=== PATIENT | male | born 1940 | race African-American/Black ===

== ENCOUNTER 2017-01-19 06:27 | Day surgery (SDC) | payer MEDICARE, OTHER ==
--- NOTE | 2017-01-18 16:24 | Pre-Procedure Note/Attestation ---
Pre-Procedure Note/Attestation Complete Prior to Procedure Planned Procedure: right Procedure Narrative: 1. CATARACT EXTRACTION WITH PHACO AND PC IOL IMPLANTATION, RIGHT EYE. 2.MALYUGIN RING INSERTION, RIGHT EYE FOR FLOPPY IRIS SYNDROME. 3.COMPLEX CATARACT , RIGHT EYE Indications for Procedure Pre-Operative Diagnosis: 1. CATARACT ,RIGHT EYE. 2. FLOPPY IRIS SYNDROME,RIGHT EYE 3. COMPLEX CATARACT , RIGHT EYE. Attestation I attest that I discussed the nature of the procedure; its benefits; risks and complications; and alternatives (and the risks and benefits of such alternatives ), prior to the procedure, with the patient (or the patient's legal policy services representative). I attest that, if there was a reasonable possibility of needing a blood transfusion, the patient (or the patient's legal policy services representative) was given the [facility] standardized written summary, pursuant to the [place] Blood Safety Act ([place] Health and Safety Code # 1645, as amended). I attest that I re-evaluated the patient just prior to the surgery and that there has been no change in the patient's H&P, except as documented below: LILIYA ANDRADE Jan 18, 2017 16:24
[~2017-01-19] VITALS: Ht 172.7 cm; Wt 90.7 kg
[2017-01-19] VITALS (8 sets, daily range): BP systolic 120–160; BP diastolic 62–94
[~2017-01-19 06:27] MED LIST: BSS 15ml BTL ONE; BSS 500ml btl ONE; Carbachol 0.01% Op Soln 1.5ml vial ONE; Dexamethasone 4mg/ml vial ONE; EPINEPHrine 1mg/1ml Amp ONE; Lidocaine 1% MPF 10mg/ml 5ml ONE; Povidone-Iodine 5% opth solution ONE; Sodium Hyaluronate 10 mg/ml 0.85ml ONE; Tetracaine 0.5% Opth 4ml Soln ONE; acetaZOLAMIDE 125mg tab ORAL ONE
[2017-01-19] MEDS ORDERED: DiphenhydrAMINE 50mg/ml Inj ONE (06:52)
[2017-01-19] MEDS ORDERED: Phenylephrine 10% Opth Soln 5ml ONE (07:16)
[2017-01-19] MEDS ORDERED: Vigamox Opth Soln 3ml ONE (07:16)
[2017-01-19] MEDS ORDERED: Ketorolac Tromethamine Opth 5ml Soln ONE (07:16)
[2017-01-19] MEDS ORDERED: Akten 3.5% 1ml Btl ONE (07:16)
[2017-01-19] MEDS ORDERED: Tropicamide 1% Opth 15ml Soln ONE (07:17)
--- NOTE | 2017-01-19 07:18 | Anethesia Preoperative Eval ---
Anesthesia Pre-op PMH/ROS General Date of Evaluation: Jan 19, 2017 Anesthesiologist: Sotero ASA Score: ASA 3 Mallampati Score Class I : Soft palate, uvula, fauces, pillars visible Class II: Soft palate, uvula, fauces visible Class III: Soft palate, base of uvula visible Class IV: Only hard plate visible Mallampati Classification: Class III Surgeon: Tiffanie Diagnosis: Right cataract Surgical Procedure: Right cataract extration with IOL Anesthesia History: none Family History: no anesthesia problems Allergies: Coded Allergies: PENICILLINS (Verified Allergy, Severe, 01/19/17) RINGING IN EARS, ANAPHYLACTIC Medications: see eMAR Past Medical History Cardiovascular: Reports: HTN, Denies: CAD, [place], valve dz, arrhythmia, other Pulmonary: Denies: asthma, COPD, ANDRE[place], other Gastrointestinal/Genitourinary: Reports: GERD, other - prostat ca, Denies: CRI, ESRD Neurologic/Psychiatric: Reports: depression/anxiety, other - seizures of unknown etiology, not on meds, Denies: dementia, CVA, TIA Endocrine: Denies: DM, hypothyroidism, steroids, other HEENT: Denies: cataract (L), cataract (R), glaucoma, [place] (L), [place] (R), other Hematology/Immune: Denies: anemia, DVT, bleeding disorder, other Musculoskeletal/Integumentary: Reports: OA, Denies: RA, DJD, DDD, edema, other PSxH Narrative: cervical and lumbar sx Anesthesia Pre-op Phys. Exam Physician Exam see chart Constitutional: NAD Cardiovascular: RRR Respiratory: CTA Airway Exam Mallampati Score: Class III MO: full ROM: full Teeth: missing Dentures: upper, lower Anesthesia Pre-op A/P Labs see chart Studies Pre-op Studies: EKG - sr Risk Assessment & Plan Assessment: ASA III Plan: MAC Status Change Before Surgery: No Pre-Antibiotics Drug: N/A NUVIA PANIAGUA M.D. Jan 19, 2017 07:17
[2017-01-19] MEDS: Tropicamide 1% Opth 15ml Soln RIGHT EYE SCH ×3 (07:26→07:56)
[2017-01-19] MEDS: Akten 3.5% 1ml Btl RIGHT EYE SCH ×3 (07:26→07:56)
[2017-01-19] MEDS: Phenylephrine 10% Opth Soln 5ml RIGHT EYE SCH ×3 (07:27→07:57)
[2017-01-19] MEDS: Ketorolac Tromethamine Opth 5ml Soln RIGHT EYE SCH ×3 (07:27→07:56)
[2017-01-19] MEDS: Vigamox Opth Soln 3ml RIGHT EYE SCH ×3 (07:27→07:57)
[2017-01-19 08:04] LABS: ANION GAP 6 mmol/L (5-15); CALCIUM 8.7 MG/DL (8.5-10.1); CARBON DIOXIDE 28 MMOL/L (21-32); CHLORIDE 107 MMOL/L (98-107); CREATININE 1.4 MG/DL (0.55-1.30); POTASSIUM 4.6 MMOL/L (3.5-5.1); SODIUM 140 MMOL/L (136-145)
[2017-01-19 08:09] LABS: BASOPHILS % (AUTO) 1.6 % (0.0-2.0); EOSINOPHILS % (AUTO) 1.7 % (0.0-3.0); LYMPHOCYTES % (AUTO) 21.3 % (20.0-45.0); MEAN CORPUSCULAR HEMOGLOBIN 30.8 PG (27.0-31.0); MEAN CORPUSCULAR HGB CONC 33.7 G/DL (32.0-36.0); MEAN CORPUSCULAR VOLUME 91 FL (80-99); MEAN PLATELET VOLUME 12.7 FL (6.5-10.1); MONOCYTES % (AUTO) 11.4 % (1.0-10.0); PLATELET COUNT 183 K/UL (150-450); RED BLOOD COUNT 4.56 M/UL (4.70-6.10); RED CELL DISTRIBUTION WIDTH 13.5 % (11.6-14.8); WHITE BLOOD COUNT 6.7 K/UL (4.8-10.8)
[2017-01-19] MEDS ORDERED: Lidocaine 1% MPF 10mg/ml 5ml ONE (09:00)
[2017-01-19] MEDS ORDERED: fentaNYL 100 mcg/2 mL IV ONE (09:00)
[2017-01-19] MEDS ORDERED: LR 1000ml ONE (09:00)
[2017-01-19] MEDS ORDERED: NS Irrig 1000ml ONE (09:00)
[2017-01-19] MEDS ORDERED: Sterile Water Irrig 1000ml IRRIG ONE (09:00)
[2017-01-19] MEDS ORDERED: LR 1000ml 1,000 ML IVLG SCH (09:23)
--- NOTE | 2017-01-19 09:24 | Immediate Post-Op Evaluation ---
Immediate Post-Op Evalulation Immediate Post-Op Evalulation Procedure: Right cataract extraction with IOL Date of Evaluation: Jan 19, 2017 Time of Evaluation: 09:53 IV Fluids: 500 Blood Products: 0 Estimated Blood Loss: 0 Urinary Output: 0 Blood Pressure Systolic: 160 Blood Pressure Diastolic: 94 Pulse Rate: 64 Respiratory Rate: 16 O2 Sat by Pulse Oximetry: 98 Temperature (Fahrenheit): 97.9 Pain Score (1-10): 0 Nausea: No Vomiting: No Complications 0 Patient Status: awake, reacts, patent, none Hydration Status: adequate Drug: N/A NUVIA PANIAGUA M.D. Jan 19, 2017 09:24
--- NOTE | 2017-01-19 09:25 | 48 Hour Post Anesthesia Eval ---
Post Anesthesia Evaluation Procedure: Right cataract extraction with IOL Date of Evaluation: Jan 19, 2017 Airway: patent Nausea: No Vomiting: No Pain Intensity: 0 Hydration Status: adequate Cardiopulmonary Status: at baseline Mental Status/LOC: patient returned to baseline Post-Anesthesia Complications: 0 Follow-up care needed: ready to discharge NUVIA PANIAGUA M.D. Jan 19, 2017 09:25
[2017-01-19] MEDS ORDERED: DiphenhydrAMINE 50mg/ml Inj IVP PRN (09:30)
--- NOTE | 2017-01-19 09:51 | Discharge Summary ---
Discharge Summary Discharge Summary Discharge Summary DATE OF ADMISSION: 01/19/2017 DATE OF DISCHARGE: 01/19/2017 REASON FOR HOSPITALIZATION: 1- Cataract right eye 2- Floppy iris syndrome 3- Complex cataract. right eye SURGERY PERFORMED: 1- Cataract extraction 2- Malyugin ring insertion 3- Complex cataract removed, right eye CONDITION IN THE HOSPITAL:The patient tolerated the surgery without complications. DISCHARGE CONDITION: The patient was stable at discharge. DISCHARGE MEDICATIONS: 1. Vigamox eye drops one drop q.i.d, OD 2. Prednisolone one drop q.i.d, OD 3. Acular q4h, OD POSTOPERATIVE ORDERS: The patient has to rest at home. No bending, No lifting, No watching Television tonight. POSTOPERATIVE FOLLOW UP: The patient will be followed in my office tomorrow morning at 7 o'clock. LILIYA ANDRADE Jan 19, 2017 09:51
--- NOTE | 2017-01-19 09:54 | Brief Operative Note ---
Immediate Post Operative Note Operative Note Chief Complaint: Nlurry vision, right eye difficulty driving and reading Pre-op Diagnosis: 1. CATARACT ,RIGHT EYE. 2. FLOPPY IRIS SYNDROME,RIGHT EYE 3. COMPLEX CATARACT , RIGHT EYE. Procedure: 1- Cataract extraction with phaco and PC IOL implantation, right eye. 2- Malyugin ring insertion, right eye 3- Complex cataract is removed, right eye Post-op Diagnosis: same as pre-op Surgeon: Liliya Moreno MD Building Contractor: None Additional Surgeons: None Anesthesiologist: Dr. Bey Anesthesia: MAC Specimen: none Complications: none Condition: stable Fluids: 500ml Estimated Blood Loss: none Drains: none - Monofocal PC IOL is implanted in the right eye without complication Implant(s) used?: Yes LILIYA MORENO Jan 19, 2017 09:54
[2017-01-19] MEDS ORDERED: Sodium Hyaluronate 10 mg/ml 0.85ml ONE (11:20)
--- NOTE | 2017-01-20 03:45 | Operative Note - Dictated ---
DATE OF OPERATION: 01/19/2017 FACILITY: [facility]. SURGEON: Alverto Canela M.D. FUR BUYER: None. ANESTHESIOLOGIST: Dr. Bey. ANESTHESIA: Monitored anesthesia care (MAC). PREOPERATIVE DIAGNOSES: 1. Cataract of the right eye. 2. Astigmatism, right eye. 3. Floppy iris syndrome, right eye. 4. Complex cataract, right eye. POSTOPERATIVE DIAGNOSES: 1. Cataract of the right eye. 2. Astigmatism, right eye. 3. Floppy iris syndrome, right eye. 4. Complex cataract, right eye. SURGERY PERFORMED: 1. Cataract extraction with phacoemulsification and posterior chamber intraocular lens implantation in the right eye. 2. Insertion of Malyugin ring for treatment of floppy iris syndrome. 3. Complex cataract removal. INDICATION FOR SURGERY: The patient is a 76-year-old gentleman with history of hypertension, hypercholesterolemia, asthma, and benign prostatic hypertrophy. He has had low back surgeries last year and cancer removal of the prostate in 2010. He is taking medications including losartan, Flomax, tramadol, ranitidine, Lyrica, Diovan, and omeprazole. He is complaining of blurred vision in the right eye. On examination of the right eye, the cornea is clear, anterior chamber is shallow, but clean and quiet. Pupillary reflex is normal. There is no RAPD. There is 3+ nuclear sclerosis and 2+ cortical cataract. Funduscopy shows normal optic disc, normal macula, and periphery retina is flat. To improve his vision in the right eye, the cataract has to be removed and posterior chamber intraocular lens has to be implanted. INFORMED CONSENT: The nature of the surgery, risks, benefits, alternatives, and potential complications were all explained in detail to the patient. The potential complications including, but not limited to bleeding, infection, posterior capsular rupture, lens subluxation, flat anterior chamber, iris prolapse, uveitis, corneal edema, macular edema, endophthalmitis, retinal detachment, loss of vision, and even loss of the eye were all explained in detail to the patient. The patient voiced understanding and accepted all the complications. The alternatives including accommodating lenses, multifocal lenses, toric lens, and conventional cataract surgery with limbal relaxing incision for treatment of astigmatism were all explained in detail to the patient, who voiced understanding. The patient elected to have conventional cataract surgery with limbal relaxing incision (LRI) for treatment of astigmatism in the right eye. Then, he signed the consent form, which is in the chart. DESCRIPTION OF SURGERY AND FINDINGS: Following that, the patient was taken to the operating room in a stable condition. Lidocaine gel Akten 3.5% were applied to the conjunctiva of the right eye. IV sedation was given by the anesthesiologist, Dr. Bey. After adequate anesthesia and sedation had been achieved, the right eye was prepped and draped in the sterile fashion for intraocular surgery. Following that, a speculum was placed in the right eye. Before the patient was taken to the operation room, the cornea was marked at 180 and 90 meridian. In the operation room, using a corneal marker and marking pen, the steep meridian of the cornea was marked. Following that, using a emily knife with 600 blade, two parallel incisions were placed on the steep meridian of the cornea for treatment of astigmatism. Following that, using a Super Sharp knife, a clear corneal side port was created. A 1% lidocaine without preservative (MPF) was injected into the anterior chamber. Following that, viscoelastic agent, Healon was injected into the anterior chamber. Following that, using a 2.8 mm keratome, temporal clear corneal keratotomy was performed. Following that, a Malyugin ring was inserted into the anterior chamber. The coils of the Malyugin ring were engaged with the sphincter of the pupil. A emily shaped space was created for safe phacoemulsification. Following that, anterior capsulotomy was performed under the viscoelastic agent in the fashion of capsulorrhexis beautifully. Following that, the viscoelastic agent was removed from the anterior chamber. Following that, using balanced salt solution, hydrodissection and hydrodelineation were performed and the nucleus was freed. Following that, viscoelastic agent, Healon was injected into the anterior chamber to protect the endothelium of the cornea. Following that, using phacoemulsification machine in the fashion of horizontal chop, the nucleus was removed in toto. Following that, using irrigation aspiration unit, the cortical material was removed from the capsular bag and the capsular bag was polished. Following that, the capsular bag was filled with viscoelastic agent. Following that, a +15.5 diopter ZCB00 foldable PCIOL with serial number #[id number] was inserted into the capsular bag. Using a Sinskey hook, the lens was manipulated and put in the proper position. Following that, the viscoelastic agent was removed from the anterior and posterior part of the lens and the anterior chamber was filled with balanced salt solution. Following that, the wound was hydrated with balanced salt solution and the wound was checked for leakage. There was no leakage. Vigamox eye drops were applied to the conjunctiva of the right eye. Before the wound was hydrated, the Malyugin ring was removed from the anterior chamber. The patient tolerated the surgery without complications. At the end of the surgery, the eye was patched with a clear sterile fenestrated shield. Following that, the patient was transferred to the recovery room. In the recovery room, 125 mg Diamox was given by mouth stat. Postoperative orders and directions were given to the patient. The patient will be discharged home upon stabilization. The patient will be followed in my office tomorrow morning at 9 o'clock. Alverto Moreno M.D. DR: JEANETTE JOB#: [id number] CC:
== END 2017-01-19 11:35 | disposition home or self-care (01) ==
LOC: SUR 06:27
DX: H25.11 Age-related nuclear cataract, right eye (principal); H25.011 Cortical age-related cataract, right eye; H52.201 Unspecified astigmatism, right eye; H21.81 Floppy iris syndrome; E78.00 Pure hypercholesterolemia, unspecified; Z85.46 Personal history of malignant neoplasm of prostate; M48.061 Spinal stenosis, lumbar region without neurogenic claudication; I11.9 Hypertensive heart disease without heart failure; E66.9 Obesity, unspecified; Z68.30 Body mass index [BMI] 30.0-30.9, adult; K21.9 Gastro-esophageal reflux disease without esophagitis; F41.9 Anxiety disorder, unspecified; F32.9 Major depressive disorder, single episode, unspecified; Z88.0 Allergy status to penicillin
CPT/HCPCS: 36415; 66982; 80048; 85025; J0171; J1100; J1200; J3010; J7120; V2632; 94003; 94150

== ENCOUNTER 2017-03-02 06:12 | Day surgery (SDC) | payer MEDICARE, OTHER ==
--- NOTE | 2017-02-04 13:02 | Pre-Procedure Note/Attestation ---
Pre-Procedure Note/Attestation Complete Prior to Procedure Planned Procedure: left Procedure Narrative: 1. CATARACT EXTRACTION WITH PHACO AND PC IOL IMPLANTATION, LEFT EYE. 2.MALYUGIN RING INSERTION, LEFT EYE FOR FLOPPY IRIS SYNDROME. 3.COMPLEX CATARACT , LEFT EYE Indications for Procedure Pre-Operative Diagnosis: 1. CATARACT ,LEFT EYE. 2. FLOPPY IRIS SYNDROME,LEFT EYE 3. COMPLEX CATARACT , LEFT EYE. Attestation I attest that I discussed the nature of the procedure; its benefits; risks and complications; and alternatives (and the risks and benefits of such alternatives ), prior to the procedure, with the patient (or the patient's legal major account representative). I attest that, if there was a reasonable possibility of needing a blood transfusion, the patient (or the patient's legal major account representative) was given the [facility] standardized written summary, pursuant to the Justo [place] Blood Safety Act ([place] Health and Safety Code # 1645, as amended). I attest that I re-evaluated the patient just prior to the surgery and that there has been no change in the patient's H&P, except as documented below: LILIYA ANDRADE Feb 04, 2017 13:02
--- NOTE | 2017-02-09 07:04 | Anethesia Preoperative Eval ---
Anesthesia Pre-op PMH/ROS General Date of Evaluation: Feb 09, 2017 ASA Score: ASA 3 Mallampati Score Class I : Soft palate, uvula, fauces, pillars visible Class II: Soft palate, uvula, fauces visible Class III: Soft palate, base of uvula visible Class IV: Only hard plate visible Mallampati Classification: Class III Surgeon: Tiffanie Diagnosis: Left cataract Surgical Procedure: Left cataract extraction with IOL Anesthesia History: none Family History: no anesthesia problems Allergies: Coded Allergies: PENICILLINS (Verified Allergy, Severe, 01/19/17) RINGING IN EARS, ANAPHYLACTIC Medications: see eMAR Past Medical History Cardiovascular: Reports: HTN, other - HLD, Denies: CAD, [place], valve dz, arrhythmia Pulmonary: Denies: asthma, COPD, [place], other Gastrointestinal/Genitourinary: Reports: GERD, other - prostatee cancer, Denies: CRI, ESRD Neurologic/Psychiatric: Reports: depression/anxiety, other - seizure disorder, Denies: dementia, CVA, TIA Endocrine: Denies: DM, hypothyroidism, steroids, other HEENT: Denies: cataract (L), cataract (R), glaucoma, [place] (R), other Hematology/Immune: Denies: anemia, DVT, bleeding disorder, other Musculoskeletal/Integumentary: Reports: OA, other - LBP, Denies: RA, DJD, DDD, edema Other: obesity PSxH Narrative: lumbar sx, acdf, right cataract Anesthesia Pre-op Phys. Exam Airway Exam Mallampati Score: Class III Anesthesia Pre-op A/P Labs see chart Risk Assessment & Plan Assessment: ASA III Plan: MAC Status Change Before Surgery: No Pre-Antibiotics Drug: N/A NUVIA PANIAGUA M.D. Feb 09, 2017 07:04
[2017-03-02] VITALS (10 sets, daily range): BP systolic 121–145; BP diastolic 70–89
[~2017-03-02] VITALS: Ht 170.2 cm; Wt 90.7 kg
[~2017-03-02 06:12] MED LIST changes: +Akten 3.5% 1ml Btl LEFT EYE SCH; +Akten 3.5% 1ml Btl ONE; -BSS 15ml BTL ONE; -BSS 500ml btl ONE; -Carbachol 0.01% Op Soln 1.5ml vial ONE; +DOCUSATE SODIU100 MG ORAL; -Dexamethasone 4mg/ml vial ONE; -EPINEPHrine 1mg/1ml Amp ONE; +Ketorolac Tromethamine Opth 5ml Soln LEFT EYE SCH; +Ketorolac Tromethamine Opth 5ml Soln ONE; +LOSARTAN POTASS25 M1 PO; +LYRICA150 MG ORAL; -Lidocaine 1% MPF 10mg/ml 5ml ONE; +Phenylephrine 10% Opth Soln 5ml LEFT EYE SCH; +Phenylephrine 10% Opth Soln 5ml ONE; -Povidone-Iodine 5% opth solution ONE; -Sodium Hyaluronate 10 mg/ml 0.85ml ONE; +TAMSULOSIN HCL0.4 MG ORAL; +TIZANIDINE HCL2 MG PO; +TRAMADOL HCL50 MG ORAL; -Tetracaine 0.5% Opth 4ml Soln ONE; +Tropicamide 1% Opth 15ml Soln LEFT EYE SCH; +Tropicamide 1% Opth 15ml Soln ONE; +Vigamox Opth Soln 3ml LEFT EYE SCH; +Vigamox Opth Soln 3ml ONE; +ZANTAC150 MG ORAL
[2017-03-02] MEDS ORDERED: NS Irrig 1000ml ONE (06:13)
[2017-03-02] MEDS ORDERED: LR 1000ml ONE (06:13)
[2017-03-02] MEDS ORDERED: Sterile Water Irrig 1000ml IRRIG ONE (06:13)
[2017-03-02] MEDS: Vigamox Opth Soln 3ml LEFT EYE SCH ×3 (06:48→07:05)
[2017-03-02] MEDS: Akten 3.5% 1ml Btl LEFT EYE SCH ×3 (06:48→07:04)
[2017-03-02] MEDS: Phenylephrine 10% Opth Soln 5ml LEFT EYE SCH ×3 (06:48→07:05)
[2017-03-02] MEDS: Ketorolac Tromethamine Opth 5ml Soln LEFT EYE SCH ×3 (06:48→07:04)
[2017-03-02] MEDS: Tropicamide 1% Opth 15ml Soln LEFT EYE SCH ×3 (06:48→07:05)
[2017-03-02] MEDS ORDERED: Dexamethasone 4mg/ml vial ONE (06:59)
[2017-03-02] MEDS ORDERED: Lidocaine 1% MPF 10mg/ml 5ml ONE (06:59)
[2017-03-02] MEDS ORDERED: BSS 500ml btl ONE (06:59)
[2017-03-02] MEDS ORDERED: Tetracaine 0.5% Opth 4ml Soln ONE (06:59)
[2017-03-02] MEDS ORDERED: Sodium Hyaluronate 10 mg/ml 0.85ml ONE ×2 (07:00→09:05)
[2017-03-02] MEDS ORDERED: BSS 15ml BTL ONE ×2 (07:00→09:58)
[2017-03-02] MEDS ORDERED: Povidone-Iodine 5% opth solution ONE (07:00)
[2017-03-02] MEDS ORDERED: Carbachol 0.01% Op Soln 1.5ml vial ONE (07:00)
[2017-03-02] MEDS ORDERED: EPINEPHrine 1mg/1ml Amp ONE (07:00)
[2017-03-02] MEDS ORDERED: Lidocaine 2% MPF 5ml Vial INJ ONE (07:58)
[2017-03-02] MEDS ORDERED: Bupivacaine 0.75% 30ml vial INJ ONE (07:58)
[2017-03-02] MEDS ORDERED: LR 1000ml 1,000 ML IVLG SCH (08:06)
[2017-03-02] MEDS ORDERED: fentaNYL 100 mcg/2 mL IV PRN (08:15)
[2017-03-02] MEDS ORDERED: DiphenhydrAMINE 50mg/ml Inj IVP PRN (08:15)
[2017-03-02] MEDS ORDERED: LR 1000ml 1,000 ML IV SCH (08:15)
--- NOTE | 2017-03-02 08:18 | Anethesia Preoperative Eval ---
Anesthesia Pre-op PMH/ROS General Date of Evaluation: Mar 02, 2017 Time of Evaluation: 07:45 Anesthesiologist: Roz ASA Score: ASA 3 Mallampati Score Class I : Soft palate, uvula, fauces, pillars visible Class II: Soft palate, uvula, fauces visible Class III: Soft palate, base of uvula visible Class IV: Only hard plate visible Mallampati Classification: Class II Surgeon: Tiffanie Diagnosis: Cataract left eye Surgical Procedure: Extraction o cataract with IOL Allergies: Coded Allergies: PENICILLINS (Verified Allergy, Severe, 01/19/17) RINGING IN EARS, ANAPHYLACTIC Medications: see eMAR Past Medical History Cardiovascular: Reports: HTN, Denies: CAD, [place], valve dz, arrhythmia, other Pulmonary: Denies: asthma, COPD, [place], other Gastrointestinal/Genitourinary: Reports: GERD, other - Prostate CA Neurologic/Psychiatric: Reports: other - Patient describes a history of several episodes of 'passing out' over the past several months. PMD has evaluated him and has reportedly cleared the patient. Surgeon aware., Denies: dementia, CVA, depression/anxiety, TIA Endocrine: Denies: DM, hypothyroidism, steroids, other HEENT: Reports: cataract (L), cataract (R) Hematology/Immune: Denies: anemia, DVT, bleeding disorder, other Musculoskeletal/Integumentary: Denies: OA, RA, DJD, DDD, edema, other PMH Narrative: HTN, questionable episodes of 'passing out', GERD, chronic pain, prostate CA PSxH Narrative: Cervical and lumbar surgery, ORIF femur, T&A, prostate radiation, cataract Anesthesia Pre-op Phys. Exam Physician Exam Last Vital Signs Date Time Temp Pulse Resp B/P (MAP) Pulse Ox O2 Delivery O2 Flow Rate FiO2 03/02/17 06:52 98.1 61 20 121/74 97 Room Air Constitutional: NAD Neurologic: CN 2-12 intact Cardiovascular: RRR, no M/R/G Respiratory: CTA Gastrointestinal: S/NT/ND Airway Exam Mallampati Score: Class II MO: full ROM: full Dentures: upper Anesthesia Pre-op A/P Labs WNL except creatinine slightly elevated Risk Assessment & Plan Assessment: Hypertensive male with vague history of 'passing out' ( cleared by PMD) and surgeon. Plan: MAC, no IV meds, retro bulbar block by surgeon Status Change Before Surgery: No Pre-Antibiotics Drug: None CAYDEN ENGEL M.D. Mar 02, 2017 08:18
--- NOTE | 2017-03-02 08:19 | Immediate Post-Op Evaluation ---
Immediate Post-Op Evalulation Immediate Post-Op Evalulation Procedure: Extraction of cataract with IOL let eye Date of Evaluation: Mar 02, 2017 Time of Evaluation: 09:45 IV Fluids: 750 Blood Pressure Systolic: 148 Blood Pressure Diastolic: 80 Pulse Rate: 68 Respiratory Rate: 17 O2 Sat by Pulse Oximetry: 100 Temperature (Fahrenheit): 98.0 Pain Score (1-10): 0 Nausea: No Vomiting: No Complications No complication Patient Status: awake, patent, none Hydration Status: adequate Drug: None CAYDEN ENGEL M.D. Mar 02, 2017 08:19
[2017-03-02] MEDS ORDERED: Triamcinolone 40mg/ml PF Vial ONE (09:05)
--- NOTE | 2017-03-02 09:40 | Discharge Summary ---
Discharge Summary Discharge Summary Discharge Summary DATE OF ADMISSION: 03/02/2017 DATE OF DISCHARGE: 03/02/2017 REASON FOR HOSPITALIZATION: cataract left eye 2- floppy iris syndrome 3-n complex cataract. left eye SURGERY PERFORMED: 1- Cataract extraction, left eye 2- Malyugin ring insertion, left eye CONDITION IN THE HOSPITAL:The patient tolerated the surgery without complications. DISCHARGE CONDITION: The patient was stable at discharge. DISCHARGE MEDICATIONS: 1. Vigamox eye drops one drop q.i.d, OS 2. Prednisolone one drop q.i.d, OS 3. Acular one drop qid, left eye POSTOPERATIVE ORDERS: The patient has to rest at home. No bending, No lifting, No watching Television tonight. POSTOPERATIVE FOLLOW UP: The patient will be followed in my office tomorrow morning at 7 o'clock. LILIYA ANDRADE Mar 02, 2017 09:40
--- NOTE | 2017-03-02 09:42 | 48 Hour Post Anesthesia Eval ---
Post Anesthesia Evaluation Procedure: Extraction of cataract with IOL let eye Date of Evaluation: Mar 02, 2017 Time of Evaluation: 10:15 Blood Pressure Systolic: 150 0: 81 Pulse Rate: 68 Respiratory Rate: 15 O2 Sat by Pulse Oximetry: 100 Airway: patent Nausea: No Vomiting: No Pain Intensity: 0 Hydration Status: adequate Cardiopulmonary Status: Stable Mental Status/LOC: patient returned to baseline Follow-up Care/Observations: As per surgery Post-Anesthesia Complications: No anesthetic complication Follow-up care needed: N/A CAYDEN ENGEL M.D. Mar 02, 2017 09:42
--- NOTE | 2017-03-02 09:45 | Brief Operative Note ---
Immediate Post Operative Note Operative Note Chief Complaint: Blurry vision left eye difficulty driving and reading,left eye Pre-op Diagnosis: 1. CATARACT ,LEFT EYE. 2. FLOPPY IRIS SYNDROME,LEFT EYE 3. COMPLEX CATARACT , LEFT EYE. Procedure: 1- Cataract extraction with phaco and PC IOL implantation, left eye 2- Malyugin ring insertion, left eye. 3- Anterior vitrectomy left eye 4- LRI, left eye 5- Complex cataract, left eye Post-op Diagnosis: same as pre-op Surgeon: Liliya Moreno MD. Sweater Operator: None Additional Surgeons: None Anesthesiologist: Dr. Courtney Anesthesia: MAC Specimen: none Complications: yes Condition: stable Fluids: 500ml Estimated Blood Loss: none Implant(s) used?: Yes - Monofocal PC IOL implanted in the left eye . Anterior vitrectomy done, left eye LILIYA MORENO Mar 02, 2017 09:45
--- NOTE | 2017-03-03 07:00 | Operative Note - Dictated ---
DATE OF OPERATION: 03/02/2017 FACILITY: [facility]. SURGEON: Alverto Moreno M.D. [employer] SUPERVISOR: None. ANESTHESIOLOGIST: Justo Courtney M.D. ANESTHESIA: Monitored anesthesia care (MAC). PREOPERATIVE DIAGNOSES: 1. Cataract of the left eye. 2. Astigmatism, left eye. 3. Floppy iris syndrome, left eye. 4. Complex cataract, left eye. 5. Vitreous prolapse, left eye. POSTOPERATIVE DIAGNOSES: 1. Cataract of the left eye. 2. Astigmatism, left eye. 3. Floppy iris syndrome, left eye. 4. Complex cataract, left eye. 5. Vitreous prolapse, left eye. SURGERY PERFORMED: 1. Cataract extraction with phacoemulsification and posterior chamber with intraocular lens implantation in the left eye. 2. Insertion of Malyugin ring for treatment of floppy iris syndrome. 3. Complex cataract surgery performed. 4. Anterior vitrectomy. INDICATION FOR SURGERY: The patient is a 76-year-old gentleman with history of hypertension, hypercholesterolemia, asthma, and benign prostatic hypertrophy. He has had low back surgery last year and cancer removal of his prostate. He is taking medications including losartan, Flomax, tramadol, ranitidine, Lyrica, Diovan, and omeprazole. He is complaining of blurred vision in the left eye. He has had cataract surgery in the right eye three weeks ago and he is happy with the result. On examination of the right eye, the cornea is clear. Anterior chamber is clean and quiet. Pupillary reflexes normal. There is no RAPD. There is 4+ nuclear sclerosis and 2+ cortical cataract in the left eye. Funduscopy shows normal optic disc, normal macula, and periphery retina is flat. To improve his vision in the left eye, the cataract has to be removed and posterior chamber intraocular lens has to be implanted. INFORMED CONSENT: The nature of the surgery, risks, benefits, alternatives, and potential complications were all explained in detail to the patient. The potential complications including, but not limited to bleeding, infection, posterior capsular rupture, lens subluxation, flat anterior chamber, iris prolapse, uveitis, corneal edema macular edema, endophthalmitis, retinal detachment, loss of vision, and even loss of the eye were all explained in detail to the patient. The patient voiced understanding and accepted all the complications. The alternatives including accommodating lenses, multifocal lens, toric lens, and conventional cataract surgery with limbal relaxing incision for treatment of astigmatism were all explained. The patient voiced understanding. The patient elected to have conventional cataract surgery with limbal relaxing incision (LRI) for treatment of astigmatism in the left eye. Then, he signed the consent form, which is in the chart. DESCRIPTION OF SURGERY AND FINDINGS: Following that the patient was taken to the operation room in a stable condition. Lidocaine gel Akten 3.5% were applied to the conjunctiva of the left eye. IV sedation was given by the anesthesiologist, Dr. Bey. After adequate anesthesia and sedation had been achieved, the left eye was prepped and draped in a sterile fashion for intraocular surgery. Following that, a speculum was placed in the left eye. Before the patient was taken to the operation room, the cornea was marked at 180 and 90 meridian. In the operation room, using a corneal marker and marking pen, the steep meridian of the cornea was marked. Following that using a emily knife with 600 blade, two parallel incisions were placed on the steep meridian of the cornea for treatment of astigmatism. Following that using a Super Sharp knife, a clear corneal side port was created. A 1% lidocaine without preservative (MPF) was injected into the anterior chamber. Following that, viscoelastic agent, Healon, was injected into the anterior chamber. Following that, using a 2.8 mm keratome, temporal clear corneal keratotomy was performed. Following that, a Malyugin ring was inserted into the anterior chamber. The coils of the Malyugin ring were applied to engaged with intraoperative anterior capsulotomy engaged with pupil sphincter. A emily-shaped space was created for safe phacoemulsification. Following that, an anterior capsulotomy was performed in the fashion of capsulorrhexis beautifully. Following that, a viscoelastic agent was injected into the anterior chamber. Following that whole viscoelastic agent was removed from the anterior chamber. Hydrodissection and hydrodelineation was performed with balanced salt solution and the nucleus was freed. Following that viscoelastic agent, Healon was injected into the anterior chamber to protect the endothelium of the cornea. Following that, using the phacoemulsification machine in the fashion of horizontal chop, the nucleus was removed in toto. During the phacoemulsification, the posterior capsulorrhexis was noticed and the vitreous was prolapsed into the anterior chamber. Therefore the corneal ring was extended and rest of the nucleus was removed from the capsular bag. An anterior automated vitrectomy was performed. Anterior chamber was cleaned from the vitreous body. Following that the anterior chamber and posterior chamber was filled with viscoelastic agent. Following that, a +18 diopter [id number] holdable PC IOL with serial number [id number] was injected into the capsular . Lens was manipulated and put in the proper position. Following that, the viscoelastic agent was removed from the anterior and posterior part of the lens. Following that, the anterior chamber was filled with balanced salt solution and the Miostat was injected to make the pupil smaller. Following that the corneal wound was stitched with the 10-0 nylon and the notch was trimmed and buried into the corneal tissue. The patient tolerated the surgery with minimal complications. Following that, the patient dexamethasone and gentamicin was injected sub-tenon. Vigamox eyedrops were applied to the conjunctiva of the left eye. At the end of the surgery, the eye was patched with a clear sterile fenestrated shield and eye patch. Following that the patient was transferred to the recovery room. In the recovery room, 125 mg Diamox was given by mouth stat. Postoperative orders and directions were given to the patient. The patient will be discharged home upon stabilization. The patient will be followed in my office tomorrow morning. Alverto Moreno M.D. DR: JOSE G JOB#: [id number] CC:
--- NOTE | 2017-03-05 21:45 | Pre-op HX & Phy Repo 2 SIG ---
DATE OF ADMISSION: 03/02/2017 PRESURGICAL INTERNAL MEDICINE HISTORY AND PHYSICAL DATE OF EVALUATION: 03/02/2017 REASON FOR EVALUATION: I was asked by Dr. Alverto Moreno to see this 76-year-old male, who is going for elective surgery on the left eye. The patient has cataract of left eye. The patient was evaluated. Chart was reviewed. This is second visit to [facility]. The patient had right eye cataract surgery in 01/2017. PAST MEDICAL HISTORY: Remarkable for hypertension. Denies history of heart attack or chest pain. No palpitations. The patient describes few episodes of passing out, "seizures" during the last six months, seen in the emergency room at [facility] by primary care physician, and no definite diagnosis given. The patient denies history of thyroid problem. No history of diabetes. No respiratory problem. Denies history of renal failure. The patient has history of prostate cancer and left femur benign tumor, treated for cancer of the prostate with radiation therapy several years ago. PAST SURGICAL HISTORY: Cataract of right eye and prostate cancer radiation. MEDICATIONS: Present medications include losartan, Proscar, and . ALLERGIES: Penicillin. SOCIAL HISTORY: Denies history of tobacco use or alcohol use. The patient occasionally smoked marijuana. FAMILY HISTORY: Mother and father had hypertension. PHYSICAL EXAMINATION: GENERAL: The patient is alert, well-developed, and well-nourished male in his 70s, in no acute distress. VITAL SIGNS: Blood pressure 122/74, temperature 98.1, pulse 61 and regular, and O2 saturation 97% on room air. SKIN: Warm, dry, clear. No rashes. No ulcers. LYMPH NODES: Not enlarged. HEENT: Head normocephalic, atraumatic. Ears, clear. Eyes, full description per Dr. Alverto Moreno. Mouth, clear and moist. No dentures. NECK: No jugular venous distention. Carotid artery +2. No bruits. No palpable mass. CHEST: No deformity or asymmetry. LUNGS: Clear to auscultation and percussion. HEART: Sinus rhythm. No ectopy. No murmur. No S3 or S4. ABDOMEN: Soft, benign. Liver and spleen not enlarged. GENITOURINARY TRACT: History of prostate cancer with history of radiation. Denies dysuria. CVA nontender. EXTREMITIES: No edema or varicose veins. No calf tenderness. NERVOUS SYSTEM: No tremor or nystagmus. nerves II through XII in normal limits. No pathology. LABORATORY AND DIAGNOSTIC DATA: Laboratory work done on 01/19/2017, white blood cells 6.7, hemoglobin 14.0, and hematocrit 41.4. ECG, sinus bradycardia, otherwise normal ECG. IMPRESSION: 1. Cataract, left eye. 2. Hypertension, controlled. 3. Seizure episode described during the last six months, non-evaluated. 4. History of prostate cancer. PLAN: Cataract extraction of left eye with intraocular lens per Dr. Alverto Moreno. We discussed with anesthesiologist and Dr. Moreno, the patient's seizures, "condition" with recommendation to ensue workup as an outpatient per primary care physician, neurologist, and web content producer as well. Today during the surgery, the patient will receive retrobulbar block with anesthesia standby. The patient did not eat or drink from last night and the patient's condition optimized for surgery. Thank you very much, Dr. Moreno, for privilege to participate in the presurgical care of this interesting patient. Marla Ann M.D. DR: CELESTE JOB#: [id number] CC:
== END 2017-03-02 12:15 | disposition home or self-care (01) ==
LOC: SUR 06:12
DX: H25.12 Age-related nuclear cataract, left eye (principal); H25.012 Cortical age-related cataract, left eye; H21.81 Floppy iris syndrome; H52.202 Unspecified astigmatism, left eye; H43.02 Vitreous prolapse, left eye; I10 Essential (primary) hypertension; E78.5 Hyperlipidemia, unspecified; E78.00 Pure hypercholesterolemia, unspecified; K21.9 Gastro-esophageal reflux disease without esophagitis; Z85.46 Personal history of malignant neoplasm of prostate
CPT/HCPCS: 66982; 67005; J0171; J1100; J3300; J3490; J7120; V2632; 94003; 94150